=== PATIENT | female | born 1950 | race Caucasian/White ===

== ENCOUNTER 2021-03-20 19:14 | Observation (INO) | payer OTHER ==
[~2021-03-20] VITALS: Ht 160 cm; Wt 108.0 kg
[2021-03-20 19:23] VITALS: BP 135/80
[2021-03-20 21:41] LABS: ABSOLUTE EOSINOPHILS 0.1 thou/uL (0.0-0.7); ABSOLUTE LYMPHOCYTES 1.8 thou/uL (0.8-5.3); ABSOLUTE MONOCYTES 0.7 thou/uL (0.0-1.2); ABSOLUTE NEUTROPHILS 5.6 thou/uL (1.6-8.1); BASOPHILS 0.3 %; EOSINOPHILS 1.3 %; HEMATOCRIT 42.5 % (37.0-47.0); HEMOGLOBIN 14.4 gm/dL (12.0-15.0); LYMPHOCYTES 22.1 %; MCH 29.6 pg (26.0-34.0); MCHC 33.9 g/dL (28.0-37.0); MCV 87.2 fL (80.0-100.0); MONOCYTES 8.8 %; MPV 9.4 fl. (7.2-11.1); NUCLEATED RBCS 0 /100WBC; PLATELET COUNT* 231 thou/uL (150-400); POLYS 67.5 %; RBC 4.87 mil/uL (4.20-5.00); RDW-CV 15.1 % (10.5-14.5); WBC 8.3 thou/uL (4.0-11.0)
[2021-03-20 21:46] LABS: CALCIUM 8.9 mg/dL (8.5-10.1); CREATININE 1.4 mg/dL (0.6-1.3); POTASSIUM 4.3 mmol/L (3.5-5.1)
[2021-03-21 04:07] VITALS: BP 134/90
[2021-03-21 08:00] VITALS: BP 105/71
[2021-03-21] MEDS ORDERED: BUSPAR30 MG PO (10:09)
[2021-03-21] MEDS ORDERED: DIGOX125 MCG PO (10:09)
[2021-03-21] MEDS ORDERED: ELIQUIS5 MG PO (10:10)
[2021-03-21] MEDS ORDERED: TOPROL XL100 MG PO (10:11)
[2021-03-21] MEDS ORDERED: SYNTHROID75 MC1 PO (10:11)
[2021-03-21] MEDS ORDERED: ZYRTEC10 MG PO (10:12)
[2021-03-21] MEDS ORDERED: KLOR-CON M2020 MEQ PO (10:12)
[2021-03-21] MEDS ORDERED: ENTRESTO 24 MG1 EACH PO (10:12)
[2021-03-21] MEDS ORDERED: TORSEMIDE20 MG PO (10:13)
[2021-03-21] MEDS ORDERED: GUANFACINE HCL2 MG PO (10:14)
[2021-03-21] MEDS ORDERED: DARIFENACIN ER15 MG PO (10:14)
[2021-03-21 10:16] VITALS: BP 116/72
[2021-03-21 10:30] VITALS: BP 103/66
[2021-03-21 10:55] VITALS: BP 103/66
--- NOTE | 2021-03-21 13:25 | EKG ---
[place] [address] ELECTROCARDIOGRAM REPORT Name: TARYNAVELINA A Room: [address]#: [id number] Admission: 03/21/21 Attend Phys: Jair Pacheco Discharge: Date of : 48 Date of Service: 03/21/21 0339 Report #: [id number] THIS REPORT FOR: //name// [facility] ED Test Date: 2021-03-21 Test Time: 03:39:38 Pat Name: AVELINA CENTENO Department: Room: [facility] Gender: F Special Investigator: MR : [id number] Requested By: Winifred Lyn Order Number: [id number] MD: Alban Bernard Measurements Intervals [place] Rate: 101 P: [place]: QRS: 74 QRSD: 92 T: 252 QT: 329 QTc: 427 Interpretive Statements Atrial fibrillation Borderline repolarization abnormality No previous ECG available for comparison Electronically Signed On 03-21-2021 13:25:11 CDT by Alban Bernard [email or web address] <ELECTRONICALLY SIGNED> By: Alban Bernard MD, [facility] 03/21/21 1325 [id number] [id number] Alban Bernard MD, [facility] /EPI
--- NOTE | 2021-03-21 15:38 | NUR ---
CM ASSESSMENT: PT A&O, INDEPENDENT WITH ADL'S, ACTIVE AND DRIVES. PT RESIDES AT HOME WITH SPOUSE, AND INFORMS THAT HER SON WILL BE THERE AT D/C TO ASSIST WELL. PT OWNS A WALKER, BUT DOES NOT USE IT FOR MOBILITY. PT HAS 0 HX OF HH OR SNF. NO CM D/C PLANNING NEEDS ANTICIPATED AT THIS TIME. CM WILL REMAIN AVAILABLE TO ASSIST AND FOLLOW NEEDED.
--- NOTE | 2021-03-21 18:06 | NUR ---
Assumed care at 1030. Pt is alert and oriented. Pt was on cardizem drip 10mg/hr when she got up here. Pt's vital sign as been stable. Pt is in Afib with rate of 70-99. At 1730 pt requested to go home AMA. Her doctor was notified about the patient decision. Pt signed the AMA form. Her IV was taken out and she called her family to come and take her home. My charge kim was also aware of patient leaving AMA. AT 1813 patient was taking out to her family.
== END 2021-03-21 18:15 | disposition left against medical advice (07) ==
LOC: M.ERS 19:14 → M.TBA-ER 03-21 → M.2W 03-21 10:35
PROVIDERS: Emergency Medicine; ADMIT Internal Medicine; ATTEND Internal Medicine
DX: S50.311A Abrasion of right elbow, initial encounter (principal); S80.211A Abrasion, right knee, initial encounter; Z20.822 Contact with and (suspected) exposure to COVID-19; S90.412A Abrasion, left great toe, initial encounter; S90.411A Abrasion, right great toe, initial encounter; S90.812A Abrasion, left foot, initial encounter; N17.9 Acute kidney failure, unspecified; I10 Essential (primary) hypertension; E03.9 Hypothyroidism, unspecified; I48.91 Unspecified atrial fibrillation; F32.9 Major depressive disorder, single episode, unspecified; Z88.8 Allergy status to other drugs, medicaments and biological substances; W18.39XA Other fall on same level, initial encounter; Y93.89 Activity, other specified; Y92.89 Other specified places as the place of occurrence of the external cause; Y99.8 Other external cause status